=== PATIENT | male | born 1950 | race Caucasian/White ===

== ENCOUNTER 2025-01-29 22:11 | Emergency (ER) | payer OTHER ==
[~2025-01-29] VITALS: Ht 175.3 cm; Wt 95.3 kg
[2025-01-29] MEDS: ALBUTEROL SULF 2.5 MG/0.5ML(0.5%) NEB SOLN ONE (22:34)
[2025-01-29] MEDS: IPRATROPIUM BROM 0.5 MG/2.5ML INH SOL ONE (22:34)
[2025-01-29 22:35] VITALS: PULSE 67; RESP 17; O2SAT 95
[2025-01-29 22:54] LABS: Hemoglobin 8.5 g/dL (13.5-17.5)
[2025-01-29] MEDS: IPRATROPIUM BROM 0.5 MG/2.5ML INH SOL NEB ONE (22:55)
[2025-01-29 22:56] LABS: Hematocrit 27.8 % (41.0-53.0); Mean Corpuscular Hemoglobin 28.8 pg (28.0-32.0); Mean Corpuscular Hgb Conc. 30.6 g/dL (32.0-36.0); Mean Corpuscular Volume 93.9 fL (80.0-100.0); Platelet Count (auto) 188 10^3/uL (140-450); Red Blood Cells 2.96 10^6/uL (4.5-5.90); Red Cell Distribution Width 16.5 % (11.8-14.3)
[2025-01-29] MEDS: ALBUTEROL SULF 2.5 MG/0.5ML(0.5%) NEB SOLN NEB ONE (22:56)
[2025-01-29 23:02] LABS: Potassium 4.7 mmol/L (3.5-5.1); Sodium 144 mmol/L (136-145)
[2025-01-29 23:03] LABS: Anion Gap 12 (5-15)
[2025-01-29 23:04] LABS: Calcium 9.3 mg/dL (8.7-10.4)
[2025-01-29 23:07] LABS: Carbon Dioxide 16 mmol/L (20-31); Chloride 116 mmol/L (98-107)
[2025-01-29 23:09] LABS: BUN/Creatinine Ratio 16.3 (10.0-20.0)
--- NOTE | 2025-01-29 23:13 | ED.PDOC ---
History of Present Illness HPI Comments 74 y/o obese M is BIBA for c/o shortness of breath for 1x day. Per EMS report, patient is a resident of [facility]. He has a history of: AFIB on Plavix, AKF, CAD, DM, HLD, HTN, Bradycardia s/p pacemaker, PTCA, sick sinus syndrome, O2 dependency, Chronic lymphocytic leukemia of B-cell type, and recent PNA. On scene, he was found with expiratory wheezes and a SpO2 of 96% on his baseline O2, with a blood glucose of 151. En route, he gvien a breathing treatment, with moderate improvement of SpO2 to 96%. Patient denies any chest pain, cough, congestion, fever, chills, or further associated symptoms or modifying factors. Chief Complaint: Shortness of Breath Time Seen by MD: 22:20 Reviewed Notes: Nurses Notes, Novelties Sales Representative Notes, Medications, Allergies Allergies: Coded Allergies: Azithromycin (Verified Allergy, Unknown, 01/29/25) Sulfa Antibiotics (Verified Allergy, Unknown, 01/29/25) Information Source: Patient, Emergency Med Personnel Mode of Arrival: EMS Severity: Moderate Timing: Days Duration: Since onset Prehospital treatment: 12 Lead EKG, Breathing Tx, Data Solutions Architect, Oxygen, Other (IV access ) Past Medical History PAST MEDICAL HISTORY: AFIB, CAD, Cancer (Chronic lyphocytic leukemia of B-cell type), Depression, DM, High Lipids, HTN Past Medical History (Other): PNA, Sick sinus syndrome, AKF, Bradycardia Surgical History: Pacemaker, PTCA Family History Family History: Unknown Social History Smoker: Non-Smoker Alcohol: Denies ETOH Use Drugs: Denies Drug Use Lives In: [facility] All Other Systems: Reviewed and Negative (Comprehensive systems review obtained and negative except for what is stated in the HPI.) Physical Exam General Appearance: No Apparent Distress, Obese HEENT: Normal ENT Inspection, Pharynx Normal, TMs Normal Neck: Full Range of Motion, Non-Tender, Normal, Normal Inspection Respiratory: Chest Non-Tender, No Accessory Muscle Use, No Respiratory Distres s, Wheezing, Other (tachypneic ) Cardiovascular: No Edema, No JVD, No Murmur, No Gallop, Normal Peripheral Pulses, Tachycardia, Other (regular rhythm ) Breast Exam: Deferred Gastrointestinal: No Organomegaly, Non Tender, No Pulsatile Mass, Normal Bowel Sounds, Soft Genitalia: Deferred Pelvic: Deferred Rectal: Deferred Extremities: No calf tenderness, Normal capillary refill, Normal inspection, Normal range of motion, Non-tender, No pedal edema Musculoskeletal : Apperance: Normal Neurologic: Alert, cigar wrapper tender automatic II-XII nml as Tested, No Motor Deficits, Normal Affect, Normal Mood, No Sensory Deficits Cerebellar Function: Normal Reflexes: Normal Skin: Dry, Normal Color, Warm Lymphatic: No Adenopathy Was a procedure done? Was a procedure done?: No EKG EKG : Pulse Rate (adult): 64 Leopold: Normal Cardiac Rhythm: NSR Block: None Hypertrophy: None ST: Old, Lat, Infarct Differential Dx Considerations may include: URI, PNA, VT, PE, viral syndrome, among others X-Ray, Labs, Meds, VS Vital Signs Date Time Temp Pulse Resp B/P (MAP) Pulse Ox O2 Delivery O2 Flow Rate FiO2 01/30/25 00:32 146/85 01/30/25 00:00 62 01/29/25 23:28 69 24 155/64 (94) 95 01/29/25 23:13 64 01/29/25 22:35 67 95 Nasal Cannula* 5 40 01/29/25 22:23 67 29 171/58 (95) 93 01/29/25 22:23 98.6 68 24 157/80 (105) 96 98.6 01/29/25 22:15 64 Lab Test 01/30/25 01:42 01/30/25 00:06 01/29/25 23:40 01/29/25 23:20 Range/Units Troponin I High Sensitivity Pending 13 </=54 ng/L Urine Color Light-brown Yellow Urine Clarity Turbid H Clear Urine pH 5.5 5.0-9.0 Urine Specific Humphrey 1.015 1.001-1.035 Urine Protein 1+ H Negative Urine Ketones Negative Negative Urine Blood 3+ H Negative /uL Urine Nitrite Negative Negative Urine Bilirubin Negative Negative Urine Urobilinogen Normal Negative mg/dL Urine Leukocyte Esterase Negative Negative /uL Urine RBC 892 0 - 3 /hpf Urine Microscopic WBC 10 H 0-3 /HPF Urine Squamous Epithelial Cells Few <5 /hpf Urine Bacteria Few H None Seen /hpf Urine Mucus Few None Seen Urine Glucose Normal Normal mg/dL Lactic Acid Level 1.6 0.4-2.0 mmol/L Test 01/29/25 22:56 01/29/25 22:32 Range/Units Influenza Type A Antigen Negative Negative Influenza Type B Antigen Negative Negative SARS-CoV-2 Antigen (Rapid) Negative NEGATIVE White Blood Count 64.6 *H 4.4-10.8 10^3/uL Red Blood Count 2.96 L 4.5-5.90 10^6/uL Hemoglobin 8.5 L 13.5-17.5 g/dL Hematocrit 27.8 L 41.0-53.0 % Mean Corpuscular Volume 93.9 80.0-100.0 fL Mean Corpuscular Hemoglobin 28.8 28.0-32.0 pg Mean Corpuscular Hemoglobin Concent 30.6 L 32.0-36.0 g/dL Red Cell Distribution Width 16.5 H 11.8-14.3 % Platelet Count 188 140-450 10^3/uL Mean Platelet Volume 8.0 6.9-10.8 fL Neutrophils (%) (Auto) 37.0-80.0 % Lymphocytes (%) (Auto) 10.0-50.0 % Monocytes (%) (Auto) 0.0-12.0 % Basophils (%) (Auto) 0.0-2.0 % Neutrophils # (Auto) 1.6-8.6 10 ^3/uL Lymphocytes # (Auto) 0.4-5.4 10 ^3/uL Monocytes # (Auto) 0-1.3 10 ^3/uL Differential Total Cells Counted 100.0 100 Neutrophils % (Manual) 14 L 37.0-80.0 Band Neutrophils % (Manual) 0 Lymphocytes % (Manual) 86 H 10.0-50.0 Monocytes % (Manual) 0 0-12 Eosinophils % (Manual) 0 0-7 Basophils % (Manual) 0 0.0-2.0 Metamyelocytes % (manual) 0 Myelocytes % (Manual) 0 Promyelocytes % (Manual) 0 Blast Cells % (Manual) 0 Reactive Lymphocytes 0 Smudge Cells 38 /100 WBC Platelet Estimate Adequate Polychromasia Slight Micaela Cells Few Schistocytes Few Sodium Level 144 136-145 mmol/L Potassium Level 4.7 3.5-5.1 mmol/L Chloride Level 116 H 98-107 mmol/L Carbon Dioxide Level 16 L 20-31 mmol/L Anion Gap 12 5-15 Blood Urea Nitrogen 34 H 9-23 mg/dL Creatinine 2.09 H 0.700-1.30 mg/dL Glomerular Filtration Rate Calc 32 >90 mL/min BUN/Creatinine Ratio 16.3 10.0-20.0 Serum Glucose 147 H 74-106 mg/dL Calcium Level 9.3 8.7-10.4 mg/dL Troponin I High Sensitivity 14 </=54 ng/L B-Type Natriuretic Peptide 1423.40 0-100 pg/mL Current Medications Medications (Trade) Dose Ordered Sig/Maddie Route Start Time Stop Time Status Last Admin Azithromycin (Zithromax Tablet) 500 mg ONCE ONCE PO 01/29/25 22:30 01/29/25 22:32 DC 01/29/25 23:36 Albuterol (Ventolin Medneb) 5 mg ONCE ONCE NEB 01/29/25 22:30 01/29/25 22:32 DC 01/29/25 22:56 Ipratropium Gile (Atrovent Medneb) 0.5 mg ONCE ONCE NEB 01/29/25 22:30 01/29/25 22:32 DC 01/29/25 22:55 Furosemide (Lasix Injection) 40 mg ONCE ONCE IV 01/30/25 00:15 01/30/25 00:28 DC 01/30/25 00:32 Cefepime HCl 50 ml @ 12.5 mls/hr ONCE ONCE IV 01/30/25 00:45 01/30/25 04:44 01/30/25 00:56 Vancomycin HCl 200 ml @ 200 mls/hr ONCE ONCE IV 01/30/25 00:45 01/30/25 01:44 DC 01/30/25 00:45 Time of 1ST Reevaluation: 22:50 Reevaluation 1ST: Improved Patient Education/Counseling: Diagnosis, Treatment Family Education/Counseling: No Family Present Additional Information Previous visits: N/A The following tests were ordered, and results were reviewed by me: EKG, UA, CXR, BMP, BNP, CBC, COVID19 & RAPID INFLUENZA A/B antigen tests, troponin Additional Information was gathered from interviewing the following independent historians: EMS I reviewed and agreed with the following test results read by other providers: CXR I discussed treatment and results with medical personnel and: Patient Departure 1 Departure Time of Disposition: 02:01 ([facility] Authorization [id number] has CLL and that is likely why patient's white count is elevated. Patient was empirically cover with antibiotics. Patient is diffusely volume overloaded and was given Lasix. We will not give the fluid bolus. Patient was accepted to [facility] as a transfer.) Impression: Primary Impression: Shortness of breath Additional Impressions: Acute on chronic systolic (congestive) heart failure Generalized weakness CLL (chronic lymphocytic leukemia) Disposition: 02 [facility] Admit to: Med Surg Condition: Serious Critical Care Note Critical Care Time?: Yes Critical care comment: Acute shortness of breath Authorized and Performed by: Monalisa Anaya MD Total critical care time: Approximately 44 minutes Due to a high probability of clinically significant, life threatening deterioration, the patient required my highest level of preparedness to intervene emergently and I personally spent this critical care time directly and personally managing the patient. This critical care time included obtaining a history; examining the patient; pulse oximetry; ordering and review of studies; arranging urgent treatment with development of a management plan; evaluation of patient's response to treatment; frequent reassessment; and, discussions with other providers. This critical care time was performed to assess and manage the high probability of imminent, life-threatening deterioration that could result in multi-organ failure. It was exclusive of separately billable procedures and treating other patients and teaching time. Please see my other sections and the rest of the note for further information on patient assessment and treatment. Stability Stability form required: No Heart Score Heart Score: Heart Score Response (Comments) Value History Moderate Suspicious 1 EKG Normal 0 Age >65 2 Risk Factors >3 or Hx ASHD 2 Troponin 1-2 x's Normal limit 1 Total 6 I personally scribed for MONALISA ANAYA MD ([email or web address]) on 01/29/25 at 23:13. Electronically submitted by Ranjit Prater ([email or web address]). MONALISA ANAYA MD Jan 29, 2025 23:13
[2025-01-29 23:14] LABS: White Blood Cell 64.6 10^3/uL (4.4-10.8)
[2025-01-29 23:15] LABS: Blood Urea Nitrogen 34 mg/dL (9-23); Glucose 147 mg/dL (74-106)
[2025-01-29 23:16] LABS: Band Neutrophils % (manual) 0; Basophils % (manual) 0 (0.0-2.0); Blast Cells 0; Eosinophils % (manual) 0 (0-7); Metamyelocytes % 0; Monocytes % (manual) 0 (0-12); Myelocytes % 0; Promyelocytes % 0; Reactive Lymphocytes 0
[2025-01-29] MEDS: AZITHROMYCIN 250 MG TAB PO ONE (23:36)
[2025-01-29 23:39] LABS: COVID19 ANTIGEN SOFIA FIA NEGATIVE (NEGATIVE)
[2025-01-29 23:40] LABS: Rapid Influenza A Negative (Negative); Rapid Influenza B Negative (Negative)
--- NOTE | 2025-01-29 23:44 | DVH ---
EXAM: XY CHEST PORTABLE CLINICAL HISTORY: sob TECHNIQUE: Single AP view of the chest WID: COMPARISON: None FINDINGS: Lines and tubes: None Chest: Mild cardiomegaly. Patchy and confluent perihilar opacities bilaterally. Calcified plaque projects over the aortic arch. There are bilateral pleural effusions. No pneumothorax. The osseous structures are grossly intact. IMPRESSION: CHF and/or volume overload.
[2025-01-30 00:32] LABS: Urine Bacteria FEW /hpf (None Seen); Urine Blood 3+ /uL (Negative); Urine Clarity Turbid (Clear); Urine Color Light-Brown (Yellow); Urine Mucus FEW (None Seen); Urine Protein, UAD 1+ (Negative); Urine Specific Gravity 1.015 (1.001-1.035); Urine Squamous Epithelial Cell FEW /hpf (<5); Urine Urobilinogen Normal (Negative); Urine WBC 10 /HPF (0-3); Urine pH 5.5 (5.0-9.0)
[2025-01-30] MEDS: FUROSEMIDE 40 MG/4 ML VIAL IV ONE (00:32)
[2025-01-30] MEDS: VANCOMYCIN 1GM/200ML PM 200 ML IV ONE (00:45)
[2025-01-30 00:56] LABS: Lymphocytes % (manual) 86 (10.0-50.0); Smudge Cells 38 /100 WBC
[2025-01-30] MEDS: CEFEPIME 2GM/50ML NS 50 ML IV ONE (00:56)
[2025-01-30 00:58] LABS: Platelet Estimate Adequate; Polychromasia Slight
[2025-01-30 04:10] VITALS: BP 176/65; PULSE 59; RESP 17; TEMP 98.2; O2SAT 98
--- NOTE | 2025-01-30 05:03 | ECG ---
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
== END 2025-01-30 04:42 | disposition short-term general hospital (02) ==
LOC: ER 22:11 → EDBD 22:11 → ER 01-30 04:42
DX: R06.02 Shortness of breath (principal); R06.2 Wheezing; I11.0 Hypertensive heart disease with heart failure; I50.23 Acute on chronic systolic (congestive) heart failure; C91.10 Chronic lymphocytic leukemia of B-cell type not having achieved remission; E11.9 Type 2 diabetes mellitus without complications; E66.9 Obesity, unspecified; E78.5 Hyperlipidemia, unspecified; F32.A Depression, unspecified; Z20.822 Contact with and (suspected) exposure to COVID-19; Z95.0 Presence of cardiac pacemaker; Z88.1 Allergy status to other antibiotic agents; Z88.2 Allergy status to sulfonamides
CPT/HCPCS: 36415; 71045; 80048; 81001; 83605; 83880; 84484; 85007; 85027; 87040; 87426; 87804; 93005; 94640; 96365; 96366; 96368; 99291; J0692; J1938; J3370

== ENCOUNTER 2025-02-06 14:18 | Emergency (ER) | payer OTHER ==
[~2025-02-06] VITALS: Ht 175.3 cm; Wt 95.3 kg
--- NOTE | 2025-02-06 16:29 | ED.PDOC ---
History of Present Illness HPI Comments 74 y/o M, BIBA, with PMHx of cancer, depression, AFib, CAD,DM, HLD, and HTN presents to the ED for CC of hematuria. EMS reports, patient is coming from home where he complains of hematuria onset today (02/05/25); following trauma. Per patient's son, he was lifting patient to help him with breakfast, when he believes it may have tugged or pulled on something resulting in hematuria to drain shortly there after. Patient's son reports, patient had Benavides Catheter placed xmonths ago for a pacemaker and has never been discontinued due to urinary retention. Patient complains of current penile pain and dysuria. No other symptoms or modifying factors present at this time. Chief Complaint: Tube Replacement Time Seen by MD: 16:18 Primary Care Provider: KIKA Reviewed Notes: Nurses Notes, Medications, Allergies Allergies: Coded Allergies: Azithromycin (Verified Allergy, Unknown, 02/06/25) Sulfa Antibiotics (Verified Allergy, Unknown, 01/29/25) Information Source: Patient, Relative (Child) Mode of Arrival: EMS Severity: Moderate Timing: Hours Duration: Since onset Prehospital treatment: None Past Medical History PAST MEDICAL HISTORY: AFIB, CAD, Cancer, Depression, DM, High Lipids, HTN Surgical History: Pacemaker, PTCA Family History Family History: No family hx of HTN, Unknown Social History Smoker: Non-Smoker Alcohol: Denies ETOH Use Drugs: Denies Drug Use Lives In: Longterm Constitutional: denies: chills, diaphoresis, fatigue, fever, malaise, sweats, weakness, others EENTM: denies: blurred vision, double vision, ear bleeding, ear discharge, ear drainage, ear pain, ear ringing, eye pain, eye redness, hearing loss, mouth pain, mouth swelling, nasal discharge, nose bleeding, nose congestion, nose pain, photophobia, tearing, throat pain, throat swelling, voice changes, others Respiratory: denies: cough, hemoptysis, orthopnea, SOB at rest, shortness of breath, SOB with excertion, stridor, wheezing, others Cardiovascular: denies: chest pain, dizzy spells, diaphoresis, Dyspnea on exertion, edema, irregular heart beat, left arm pain, lightheadedness, palpitat ions, PND, syncope, others Gastrointestinal: denies: abdomen distended, abdominal pain, blood streaked bow els, constipated, diarrhea, dysphagia, difficulty swallowing, hematemesis, melena, nausea, poor appetite, poor fluid intake, rectal bleeding, rectal pain, vomiting, others Genitourinary: reports: hematuria, others (penile pain); denies: burning, dysuria, flank pain, frequency, incontinence, penile discharge, penile sore, pain, testicle pain, testicle swelling, urgency Neurological: denies: dizziness, fainting, headache, left sided numbness, left sided weakness, numbness, paresthesia, pre-existing deficit, right sided numbness, right sided weakness, seizure, speech problems, tingling, tremors, weakness, others Musculoskeletal: denies: back pain, gout, joint pain, joint swelling, muscle pain, muscle stiffness, neck pain, others Integumetry: denies: bruises, change in color, change in hair/nails, dryness, laceration, lesions, lumps, rash, wounds, others Allergic/Immunocompromised: denies: Difficulty Healing, Frequent Infections, Hives, Itching, others Hematologic/Lymphatic: denies: anemia, blood clots, easy bleeding, easy bruising, swollen glands, others Endocrine: denies: excessive hunger, excessive sweating, excessive thirst, excessive urination, flushing, intolerance to cold, intolerance to heat, unexplained weight gain, unexplained weight loss, others Psychiatric: denies: anxiety, bipolar disorder, depression, hopeless, panic disorder, schizophrenia, sleepless, suicidal, others All Other Systems: Reviewed and Negative Physical Exam General Appearance: No Apparent Distress, Normal HEENT: Normal ENT Inspection, Pharynx Normal, TMs Normal Neck: Full Range of Motion, Non-Tender, Normal, Normal Inspection Respiratory: Chest Non-Tender, Lungs Clear, No Accessory Muscle Use, No Respira tory Distress, Normal Breath Sounds Cardiovascular: No Edema, No JVD, No Murmur, No Gallop, Normal Peripheral Pulses, Regular Rate/Rhythm Breast Exam: Deferred Gastrointestinal: No Organomegaly, Non Tender, No Pulsatile Mass, Normal Bowel Sounds, Soft Genitalia: Other (benavides catheter, hematuria) Pelvic: Deferred Rectal: Deferred Extremities: No calf tenderness, Normal capillary refill, Normal inspection, Normal range of motion, Non-tender, No pedal edema Musculoskeletal : Apperance: Normal Neurologic: Alert, church worker II-XII nml as Tested, No Motor Deficits, Normal Affect, Normal Mood, No Sensory Deficits Cerebellar Function: Normal Reflexes: Normal Skin: Dry, Normal Color, Warm Lymphatic: No Adenopathy Was a procedure done? Was a procedure done?: No Differential Dx Considerations may include: BENAVIDES CATHETER REMOVAL X-Ray, Labs, Meds, VS Vital Signs Date Time Temp Pulse Resp B/P (MAP) Pulse Ox O2 Delivery O2 Flow Rate FiO2 02/06/25 14:26 98.2 52 20 148/86 (106) 96 98.2 Time of 1ST Reevaluation: 16:48 Reevaluation 1ST: Unchanged Patient Education/Counseling: Diagnosis, Treatment Family Education/Counseling: No Family Present Departure 1 Departure Time of Disposition: 17:43 (Patient presented with hematuria in his catheter after pulling on the catheter. Patient with acute urinary retention. We will replace patient's catheter the patient will follow up with his urologist at [place].) Impression: Primary Impression: Hematuria Qualified Codes: R31.0 - Gross hematuria Additional Impression: Urinary retention Disposition: 01 HOME / SELF CARE / HOMELESS Condition: Stable Additional Instructions: It is important to follow up with your [place] urologist this week. Please call for an appointment. If your symptoms worsen or if any other concerns please return to the emergency room. Discharged With: [facility] Critical Care Note Critical Care Time?: No Stability Stability form required: No Heart Score Heart Score: Heart Score Response (Comments) Value History N/A 0 EKG N/A 0 Age N/A 0 Risk Factors N/A 0 Troponin N/A 0 Total 0 I personally scribed for MONALISA PEDRO MD ([email or web address]) on 02/06/25 at 16:29. Electronically submitted by Chayo Rosa ([email or web address]). MONALISA PEDRO MD February 06, 2025 16:29
[2025-02-06 18:15] VITALS: BP 103/48; PULSE 56; RESP 18; TEMP 97.8; O2SAT 95
== END 2025-02-06 18:21 | disposition home or self-care (01) ==
LOC: EDBD 14:18 → ER 14:32
DX: R31.9 Hematuria, unspecified (principal); R33.9 Retention of urine, unspecified; I48.91 Unspecified atrial fibrillation; I25.10 Atherosclerotic heart disease of native coronary artery without angina pectoris; E11.9 Type 2 diabetes mellitus without complications; E78.5 Hyperlipidemia, unspecified; I10 Essential (primary) hypertension; Z88.2 Allergy status to sulfonamides; Z88.1 Allergy status to other antibiotic agents; Z95.0 Presence of cardiac pacemaker
CPT/HCPCS: 51702; 99284; A4315

== ENCOUNTER 2025-03-20 07:15 | Emergency (ER) | payer OTHER ==
[~2025-03-20] VITALS: Ht 172.7 cm; Wt 87.0 kg
--- NOTE | 2025-03-20 07:33 | ED.PDOC ---
Altered Mental Status HPI Comments 74 y/o M, BIBA, with PMHx of cancer, depression, AFib, CAD,DM, HLD,COPD and HTN presents to the ED for the c/c of ALOC. Per EMS pt stated having Generalized Weakness w/ ALOC around 2am this morning. EMS states that this has happened before, so family delayed in calling emergency services. EMS states that pts Glucose was 99 on route and was given an Albuterol 2.5 treatment. Pt is noted to have bilateral lower extremity pitting edema. No other associated symptoms, modifiers, recent injuries or sick contacts present at this time. Chief Complaint: ALOC Time Seen by MD: 07:27 Primary Care Provider: KIKA Reviewed Notes: Nurses Notes, Shear Scrapman Notes, Medications, Allergies Allergies: Coded Allergies: Azithromycin (Verified Allergy, Unknown, 02/06/25) Sulfa Antibiotics (Verified Allergy, Unknown, 01/29/25) Information Source: Patient Mode of Arrival: EMS Severity: Moderate Timing: Hours Duration: Since onset, Hours Prehospital treatment: Other (Albutorl 2.5) Quality: Decreased Alertness Recent: None History of: CVA, Diabetes Associated Signs and Symptoms: None Past Medical History PAST MEDICAL HISTORY: AFIB, CAD, Cancer, Depression, DM, High Lipids, HTN Surgical History: Pacemaker, PTCA Family History Family History: No family hx of HTN, Unknown Social History Smoker: Non-Smoker Alcohol: Denies ETOH Use Drugs: Denies Drug Use Lives In: Long-Term Constitutional: reports: weakness; denies: chills, diaphoresis, fatigue, fever, malaise, sweats, others EENTM: denies: blurred vision, double vision, ear bleeding, ear discharge, ear drainage, ear pain, ear ringing, eye pain, eye redness, hearing loss, mouth pain, mouth swelling, nasal discharge, nose bleeding, nose congestion, nose pain, photophobia, tearing, throat pain, throat swelling, voice changes, others Respiratory: denies: cough, hemoptysis, orthopnea, SOB at rest, shortness of breath, SOB with excertion, stridor, wheezing, others Cardiovascular: denies: chest pain, dizzy spells, diaphoresis, Dyspnea on exertion, edema, irregular heart beat, left arm pain, lightheadedness, palpitations, PND, syncope, others Gastrointestinal: denies: abdomen distended, abdominal pain, blood streaked bowels, constipated, diarrhea, dysphagia, difficulty swallowing, hematemesis, melena, nausea, poor appetite, poor fluid intake, rectal bleeding, rectal pain, vomiting, others Genitourinary: denies: burning, dysuria, flank pain, frequency, hematuria, incontinence, penile discharge, penile sore, pain, testicle pain, testicle swelling, urgency, others Neurological: denies: dizziness, fainting, headache, left sided numbness, left sided weakness, numbness, paresthesia, pre-existing deficit, right sided numbnes s, right sided weakness, seizure, speech problems, tingling, tremors, weakness, others Musculoskeletal: denies: back pain, gout, joint pain, joint swelling, muscle pain, muscle stiffness, neck pain, others Integumetry: denies: bruises, change in color, change in hair/nails, dryness, laceration, lesions, lumps, rash, wounds, others Allergic/Immunocompromised: denies: Difficulty Healing, Frequent Infections, Hives, Itching, others Hematologic/Lymphatic: denies: anemia, blood clots, easy bleeding, easy bruising, swollen glands, others Endocrine: denies: excessive hunger, excessive sweating, excessive thirst, excessive urination, flushing, intolerance to cold, intolerance to heat, unexplained weight gain, unexplained weight loss, others Psychiatric: denies: anxiety, bipolar disorder, depression, hopeless, panic disorder, schizophrenia, sleepless, suicidal, others All Other Systems: Reviewed and Negative Physical Exam General Appearance: Mild Distress, Normal, Obese, Other (Tachypnic, ill appearing) HEENT: Normal ENT Inspection, Pharynx Normal, TMs Normal Neck: Full Range of Motion, Non-Tender, Normal, Normal Inspection Respiratory: Chest Non-Tender, Lungs Clear, No Accessory Muscle Use, No Respiratory Distress, Normal Breath Sounds Cardiovascular: No JVD, No Murmur, Normal Peripheral Pulses, Regular Rate/Rhythm, Tachycardia Breast Exam: Deferred Gastrointestinal: Non Tender, No Pulsatile Mass, Normal Bowel Sounds, Soft Genitalia: Deferred Pelvic: Deferred Rectal: Deferred Extremities: Leg edema (bilateral pitting), No calf tenderness, Normal range of motion, Non-tender Musculoskeletal : Apperance: Normal Neurologic: Alert, No Motor Deficits, Normal Mood Cerebellar Function: Normal Reflexes: Normal Skin: Dry, Normal Color, Warm Lymphatic: No Adenopathy Was a procedure done? Was a procedure done?: No Differential Diagnosis (ALOC) Differential Diagnosis: Dehydration, Hypoglycemia, Encephalopathy, Sepsis, Seizure, Closed Head Injury, CVA, Heart Failure X-Ray, Labs, Meds, VS Vital Signs Date Time Temp Pulse Resp B/P (MAP) Pulse Ox O2 Delivery O2 Flow Rate FiO2 03/20/25 09:03 99.5 97 21 152/70 (97) 93 99.5 03/20/25 08:50 97 19 159/78 (105) 93 03/20/25 08:00 103 03/20/25 07:51 95 21 94 Nasal Cannula* 3 32 03/20/25 07:49 99.4 95 21 140/66 (90) 94 99.4 03/20/25 07:46 95 03/20/25 07:15 98.6 100 28 142/75 (97) 92 98.6 Lab Test 03/20/25 09:25 03/20/25 07:42 03/20/25 07:37 Range/Units Troponin I High Sensitivity 10 10 </=54 ng/L White Blood Count 40.7 *H 4.4-10.8 10^3/uL Red Blood Count 3.16 L 4.5-5.90 10^6/uL Hemoglobin 8.9 L 13.5-17.5 g/dL Hematocrit 28.2 L 41.0-53.0 % Mean Corpuscular Volume 89.4 80.0-100.0 fL Mean Corpuscular Hemoglobin 28.1 28.0-32.0 pg Mean Corpuscular Hemoglobin Concent 31.5 L 32.0-36.0 g/dL Red Cell Distribution Width 16.9 H 11.8-14.3 % Platelet Count 230 140-450 10^3/uL Mean Platelet Volume 7.8 6.9-10.8 fL Neutrophils (%) (Auto) 37.0-80.0 % Lymphocytes (%) (Auto) 10.0-50.0 % Monocytes (%) (Auto) 0.0-12.0 % Basophils (%) (Auto) 0.0-2.0 % Neutrophils # (Auto) 1.6-8.6 10 ^3/uL Lymphocytes # (Auto) 0.4-5.4 10 ^3/uL Monocytes # (Auto) 0-1.3 10 ^3/uL Differential Total Cells Counted 100.0 100 Neutrophils % (Manual) 32 L 37.0-80.0 Band Neutrophils % (Manual) 1 Lymphocytes % (Manual) 66 H 10.0-50.0 Monocytes % (Manual) 1 0-12 Eosinophils % (Manual) 0 0-7 Basophils % (Manual) 0 0.0-2.0 Metamyelocytes % (manual) 0 Myelocytes % (Manual) 0 Promyelocytes % (Manual) 0 Blast Cells % (Manual) 0 Reactive Lymphocytes 0 Smudge Cells 9 /100 WBC Platelet Estimate Adequate Anisocytosis (manual) Slight Schistocytes Few Sodium Level 141 136-145 mmol/L Potassium Level 4.0 3.5-5.1 mmol/L Chloride Level 103 98-107 mmol/L Carbon Dioxide Level 25 20-31 mmol/L Anion Gap 13 5-15 Blood Urea Nitrogen 27 H 9-23 mg/dL Creatinine 2.24 H 0.700-1.30 mg/dL Glomerular Filtration Rate Calc 30 >90 mL/min BUN/Creatinine Ratio 12.1 10.0-20.0 Serum Glucose 97 74-106 mg/dL Lactic Acid Level 0.6 0.4-2.0 mmol/L Calcium Level 9.5 8.7-10.4 mg/dL Urine Color Light-brown Yellow Urine Clarity Turbid H Clear Urine pH 5.5 5.0-9.0 Urine Specific [place] 1.011 1.001-1.035 Urine Protein 1+ H Negative Urine Ketones 1+ H Negative Urine Blood 3+ H Negative /uL Urine Nitrite Negative Negative Urine Bilirubin Negative Negative Urine Urobilinogen Normal Negative mg/dL Urine Leukocyte Esterase 3+ Negative /uL Urine RBC 1256 0 - 3 /hpf Urine WBC Clumps Present None Seen /hpf Urine Microscopic WBC 143 H 0-3 /HPF Urine Squamous Epithelial Cells None seen <5 /hpf Urine Bacteria None seen None Seen /hpf Urine Glucose Normal Normal mg/dL Current Medications Medications (Trade) Dose Ordered Sig/Maddie Route Start Time Stop Time Status Last Admin Cefepime HCl 50 ml @ 12.5 mls/hr ONCE ONCE IV 03/20/25 09:00 03/20/25 12:59 03/20/25 10:15 Vancomycin HCl 200 ml @ 200 mls/hr ONCE ONCE IV 03/20/25 09:00 03/20/25 09:59 DC 03/20/25 08:56 PATIENT: SYED MCCARTHY ACCT: [id number] UNIT: [id number] : 1950 LOC: ER ROOM / BED: / AGE / SEX: 74 / M ADM STATUS: REG ER SERVICE 6 ORDERING PHYSICIAN: MONALISA ANAYA MD PROCEDURE(s): CXRP - CHEST PORTABLE REASON: ams ORDER NUMBER(s): [id number], ACCESSION NUMBER(s): [id number] CHEST RADIOGRAPH Indication: ams Technique: Single frontal view of the chest was obtained Comparison: XY CHEST PORTABLE on DOS: 01/29/25 FINDINGS: Lines and Tubes: None Lungs: No focal consolidation. Pleura: No effusion. No pneumothorax. Cardiomediastinal contours: Cardiomegaly Bones: No acute osseous abnormality. IMPRESSION: Cardiomegaly with CHF. Time of 1ST Reevaluation: 07:58 Reevaluation 1ST: Unchanged Patient Education/Counseling: Diagnosis, Treatment Family Education/Counseling: No Family Present SEPSIS Sepsis Screen Orders/Vitals/Labs Physician Orders Chest Portable (03/20/25 07:27) Blood Culture (03/20/25 07:27) Troponin-I Hs (03/20/25 10:27) Cefepime 2gm/50ml Ns (Maxipime 2gm/50ml) (03/20/25 09:00) Electrocardigram (03/20/25 09:26) Head Without Contrast (03/20/25 09:32) Furosemide Injection (Lasix Injection) (03/20/25 11:00) Vital Signs Date Time Temp Pulse Resp B/P (MAP) Pulse Ox O2 Delivery O2 Flow Rate FiO2 03/20/25 09:03 99.5 97 21 152/70 (97) 93 99.5 03/20/25 08:50 97 19 159/78 (105) 93 03/20/25 08:00 103 03/20/25 07:51 95 21 94 Nasal Cannula* 3 32 03/20/25 07:49 99.4 95 21 140/66 (90) 94 99.4 03/20/25 07:46 95 03/20/25 07:15 98.6 100 28 142/75 (97) 92 98.6 Laboratory Tests Test 03/20/25 07:42 Lactic Acid Level 0.6 mmol/L (0.4-2.0) White Blood Count 40.7 10^3/uL (4.4-10.8) *H Medications Medications Dose Ordered Sig/Maddie Route Start Time Stop Time Status Last Admin Dose Admin Cefepime HCl 50 ml @ 12.5 mls/hr ONCE ONCE IV 03/20/25 09:00 03/20/25 12:59 03/20/25 10:15 Vancomycin HCl 200 ml @ 200 mls/hr ONCE ONCE IV 03/20/25 09:00 03/20/25 09:59 DC 03/20/25 08:56 Departure 1 Departure Time of Disposition: 11:01 ([facility] with a acute metabolic encephalopathy likely secondary to a urinary tract infection. Patient appears clinically volume overloaded so we will not give patient fluid bolus. We will try given patient has some Lasix to diuresis extra fluid. Discussed patient with [facility] who will pick patient up.) Impression: Primary Impression: Acute metabolic encephalopathy Additional Impressions: Acute and chronic respiratory failure Complicated urinary tract infection Disposition: 02 SHORT TERM HOSPITAL Admit to: Med Surg Condition: Serious Critical Care Note Critical Care Time?: Yes Critical care comment: Altered mental status Authorized and Performed by: Monalisa Anaya MD Total critical care time: Approximately 47 minutes Due to a high probability of clinically significant, life threatening deterioration, the patient required my highest level of preparedness to intervene emergently and I personally spent this critical care time directly and personally managing the patient. This critical care time included obtaining a history; examining the patient; pulse oximetry; ordering and review of studies; arranging urgent treatment with development of a management plan; evaluation of patient's response to treatment; frequent reassessment; and, discussions with other providers. This critical care time was performed to assess and manage the high probability of imminent, life-threatening deterioration that could result in multi-organ failure. It was exclusive of separately billable procedures and treating other patients and teaching time. Please see my other sections and the rest of the note for further information on patient assessment and treatment. Stability Stability form required: No Heart Score Heart Score: Heart Score Response (Comments) Value History N/A 0 EKG N/A 0 Age N/A 0 Risk Factors N/A 0 Troponin N/A 0 Total 0 I personally scribed for MONALISA ANAYA MD ([email or web address]) on 03/20/25 at 07:33. Electronically submitted by Stephane Andrade ([email or web address]). I personally scribed for MONALISA ANAYA MD ([email or web address]) on 03/20/25 at 08:17. Electronically submitted by Stephane Andrade ([email or web address]). MONALISA ANAYA MD Mar 20, 2025 07:33
[2025-03-20 07:51] VITALS: PULSE 95; RESP 21; O2SAT 94
[2025-03-20 08:05] LABS: Urine Bacteria None Seen /hpf (None Seen)
[2025-03-20 08:09] LABS: Hemoglobin 8.9 g/dL (13.5-17.5); Mean Corpuscular Hemoglobin 28.1 pg (28.0-32.0); Red Cell Distribution Width 16.9 % (11.8-14.3)
[2025-03-20 08:11] LABS: Hematocrit 28.2 % (41.0-53.0); Mean Corpuscular Hgb Conc. 31.5 g/dL (32.0-36.0); Mean Corpuscular Volume 89.4 fL (80.0-100.0); Platelet Count (auto) 230 10^3/uL (140-450); Red Blood Cells 3.16 10^6/uL (4.5-5.90)
--- NOTE | 2025-03-20 08:12 | DVH ---
CHEST RADIOGRAPH Indication: ams Technique: Single frontal view of the chest was obtained Comparison: XY CHEST PORTABLE on DOS: 01/29/25 FINDINGS: Lines and Tubes: None Lungs: No focal consolidation. Pleura: No effusion. No pneumothorax. Cardiomediastinal contours: Cardiomegaly Bones: No acute osseous abnormality. IMPRESSION: Cardiomegaly with CHF.
[2025-03-20 08:17] LABS: Urine Blood 3+ /uL (Negative); Urine Clarity Turbid (Clear); Urine Color Light-Brown (Yellow); Urine Protein, UAD 1+ (Negative); Urine Specific Gravity 1.011 (1.001-1.035); Urine Squamous Epithelial Cell None Seen /hpf (<5); Urine Urobilinogen Normal (Negative); Urine WBC 143 /HPF (0-3); Urine WBC Clumps PRESENT /hpf (None Seen); Urine pH 5.5 (5.0-9.0)
[2025-03-20 08:20] LABS: Anion Gap 13 (5-15); Carbon Dioxide 25 mmol/L (20-31); Chloride 103 mmol/L (98-107); Sodium 141 mmol/L (136-145)
[2025-03-20 08:21] LABS: Calcium 9.5 mg/dL (8.7-10.4)
[2025-03-20 08:26] LABS: BUN/Creatinine Ratio 12.1 (10.0-20.0); Blood Urea Nitrogen 27 mg/dL (9-23); Glucose 97 mg/dL (74-106)
[2025-03-20 08:29] LABS: White Blood Cell 40.7 10^3/uL (4.4-10.8)
[2025-03-20 08:32] LABS: Basophils % (manual) 0 (0.0-2.0); Blast Cells 0; Eosinophils % (manual) 0 (0-7); Metamyelocytes % 0; Myelocytes % 0; Promyelocytes % 0; Reactive Lymphocytes 0
[2025-03-20 08:45] LABS: Band Neutrophils % (manual) 1; Lymphocytes % (manual) 66 (10.0-50.0); Monocytes % (manual) 1 (0-12)
[2025-03-20 08:46] LABS: Anisocytosis Slight; Platelet Estimate Adequate
[2025-03-20 08:48] LABS: Smudge Cells 9 /100 WBC
[2025-03-20] MEDS: VANCOMYCIN 1GM/200ML PM 200 ML IV ONE (08:56)
[2025-03-20] MEDS: CEFEPIME 2GM/50ML NS 50 ML IV ONE (10:15)
--- NOTE | 2025-03-20 10:27 | DVH ---
CT HEAD WITHOUT CONTRAST INDICATION: fall EXAM DATE: 03/20/2025 09:50 AM COMPARISON: None RADIATION DOSE: CTDIvol: 63.65 mGy, DLP: 1147.37 mGy*cm PROCEDURE: CT scans of the head were obtained from the vertex to the skull base. Sagittal and coronal reconstructions were provided. All CT scans at this medical facility are performed using dose modulation techniques as appropriate t o a performed exam including the following: Automated exposure control was utilized; adjustment of th e MA and/or KV according to patient size; and use of iterative reconstruction technique. FINDINGS: There is sulcal and ventricular prominence. The brainshows normal morphology and torres-whi te matter differentiation, without intracranial hemorrhage, extra-axial fluid collection, mass effect or acute large vessel infarct. The ventricles are normal in size. The basal cisterns are patent. The skull and visible facial bones are intact. The paranasal sinuses, mastoid air cells and middle ear c avities are well-aerated. The soft tissues of the scalp are unremarkable. IMPRESSION: No acute intracranial abnormality.
[2025-03-20] MEDS: FUROSEMIDE 40 MG/4 ML VIAL IV ONE (11:16)
[2025-03-20 18:11] VITALS: BP 160/78; PULSE 97; RESP 34; TEMP 98.1; O2SAT 92
--- NOTE | 2025-03-20 18:48 | ECG ---
[facility] Test Date: 2025-03-20 Test Time: 07:46:50 Pat Name: SYED MCCARTHY Department: ED Room: Gender: M [employer]: id : 1950 Requested By: MONALISA PEDRO Order Number: [id number] Reading MD: Benigno Erickson Measurements Intervals [place] Rate: 95 P: 0 SD: 60 QRS: 243 QRSD: 300 T: -26 QT: 393 QTc: 494 Interpretive Statements Ventricular-paced complexes No further analysis attempted due to paced rhythm Electronically Signed On 03-23-2025 21:13:42 PDT by Benigno Erickson Please click the below link to view image of tracing.
== END 2025-03-20 18:30 | disposition short-term general hospital (02) ==
LOC: ER 07:15 → EDUNIT# 07:15 → EDBD 07:15 → ER 18:30
DX: B34.9 Viral infection, unspecified (principal); G93.41 Metabolic encephalopathy; J96.20 Acute and chronic respiratory failure, unspecified whether with hypoxia or hypercapnia; N39.0 Urinary tract infection, site not specified; I48.91 Unspecified atrial fibrillation; I11.0 Hypertensive heart disease with heart failure; I50.9 Heart failure, unspecified; I25.10 Atherosclerotic heart disease of native coronary artery without angina pectoris; E11.9 Type 2 diabetes mellitus without complications; E78.5 Hyperlipidemia, unspecified; J44.9 Chronic obstructive pulmonary disease, unspecified; Z86.73 Personal history of transient ischemic attack (TIA), and cerebral infarction without residual deficits; Z88.2 Allergy status to sulfonamides; Z88.1 Allergy status to other antibiotic agents; Z95.0 Presence of cardiac pacemaker; Z79.899 Other long term (current) drug therapy
CPT/HCPCS: 36415; 70450; 71045; 80048; 81001; 82947; 83605; 84484; 85007; 85027; 87040; 93005; 96365; 96367; 96375; 99291; J0692; J1938; 82962

== ENCOUNTER 2025-04-22 13:47 | Emergency (ER) | payer OTHER ==
[~2025-04-22] VITALS: Ht 170.2 cm; Wt 84.0 kg
--- NOTE | 2025-04-22 14:02 | ECG ---
[facility] Test Date: 2025-04-22 Test Time: 13:57:12 Pat Name: SYED MCCARTHY Department: ED Room: Gender: M Risk Mgr: : 1950 Requested By: SKYLER QUEVEDO Order Number: [id number] Reading MD: Benigno Erickson Measurements Intervals [place] Rate: 50 P: 48 AL: 159 QRS: 150 QRSD: 167 T: 94 QT: 538 QTc: 491 Interpretive Statements Atrial-sensed ventricular-paced rhythm No further analysis attempted due to paced rhythm Electronically Signed On 04-25-2025 15:53:50 PDT by Benigno Erickson Please click the below link to view image of tracing.
--- NOTE | 2025-04-22 14:04 | ED.PDOC ---
SOB-HPI HPI Comments 74 y.o male with PMHx of HTN, DM, HLD, and thyroid disease, presents to the ED via EMS for a chief complaint of SOB associated with generalized weakness. EMS reports patient was recently discharged from [facility]'s ICU department s/p 3 day admission but patient is unsure of diagnosis that prompted to get admitted or when he was discharged. Patient reports increased SOB, was on 2 liters at [facility] and was increased to 4 liters via [place]. Patient on scene had a SPO2 of 90-91% per EMS and presents with saturation of 94-95% on 2 liters via [place]. Patient is a poor historian. He mentions chest pain yesterday but has resolved and pain free at this time. He denies any palpitations, nausea, vomiting, back pain, fever, chi lls. Time Seen by MD: 13:53 Primary Care Provider: KIKA Reviewed notes: Nurses Notes, Base Manager Notes, Medications, Allergies Information Source: Patient, Emergency Med Personnel Mode of Arrival: EMS Severity: Moderate Timing: Hours Duration: Since onset Context: At Rest PE Risk Factors: Other (recent admission to ICU at [facility] ) History of: Other Prehospital treatment: 12 Lead EKG, Rental Sales Representative, Oxygen Modifying Factors: Nothing Associated Signs and Symptoms: None Past Medical History PAST MEDICAL HISTORY: AFIB, CAD, Cancer, Depression, DM, High Lipids, HTN Surgical History: Pacemaker, PTCA Family History Family History: No family hx of HTN, Unknown Social History Smoker: Non-Smoker Alcohol: Denies ETOH Use Drugs: Denies Drug Use Lives In: [facility] Constitutional: reports: weakness; denies: chills, diaphoresis, fatigue, fever, malaise, sweats, others EENTM: denies: blurred vision, double vision, ear bleeding, ear discharge, ear drainage, ear pain, ear ringing, eye pain, eye redness, hearing loss, mouth pain, mouth swelling, nasal discharge, nose bleeding, nose congestion, nose pain, photophobia, tearing, throat pain, throat swelling, voice changes, others Respiratory: reports: SOB at rest, shortness of breath, SOB with excertion; denies: cough, hemoptysis, orthopnea, stridor, wheezing, others Cardiovascular: denies: chest pain, dizzy spells, diaphoresis, Dyspnea on exertion, edema, irregular heart beat, left arm pain, lightheadedness, palpitations, PND, syncope, others Gastrointestinal: denies: abdomen distended, abdominal pain, blood streaked bowels, constipated, diarrhea, dysphagia, difficulty swallowing, hematemesis, melena, nausea, poor appetite, poor fluid intake, rectal bleeding, rectal pain, vomiting, others Genitourinary: denies: burning, dysuria, flank pain, frequency, hematuria, incontinence, penile discharge, penile sore, pain, testicle pain, testicle swelling, urgency, others Neurological: denies: dizziness, fainting, headache, left sided numbness, left sided weakness, numbness, paresthesia, pre-existing deficit, right sided numbness, right sided weakness, seizure, speech problems, tingling, tremors, weakness, others Musculoskeletal: denies: back pain, gout, joint pain, joint swelling, muscle pain, muscle stiffness, neck pain, others Integumetry: denies: bruises, change in color, change in hair/nails, dryness, laceration, lesions, lumps, rash, wounds, others Allergic/Immunocompromised: denies: Difficulty Healing, Frequent Infections, Hives, Itching, others Hematologic/Lymphatic: denies: anemia, blood clots, easy bleeding, easy bruising, swollen glands, others Endocrine: denies: excessive hunger, excessive sweating, excessive thirst, excessive urination, flushing, intolerance to cold, intolerance to heat, unexplained weight gain, unexplained weight loss, others Psychiatric: denies: anxiety, bipolar disorder, depression, hopeless, panic disorder, schizophrenia, sleepless, suicidal, others All Other Systems: Reviewed and Negative Physical Exam General Appearance: Moderate Distress HEENT: Normal ENT Inspection, Pharynx Normal, TMs Normal Neck: Full Range of Motion, Non-Tender, Normal, Normal Inspection Respiratory: Chest Non-Tender, No Accessory Muscle Use, Rales, Respiratory D istress Cardiovascular: No Edema, No JVD, No Murmur, No Gallop, Normal Peripheral Pulses, Regular Rate/Rhythm Breast Exam: Deferred Gastrointestinal: No Organomegaly, Non Tender, No Pulsatile Mass, Normal Bowel Sounds, Soft Genitalia: Deferred Pelvic: Deferred Rectal: Deferred Extremities: No calf tenderness, Normal capillary refill, Normal inspection, Normal range of motion, Non-tender, No pedal edema Musculoskeletal : Apperance: Normal Neurologic: Alert, icu manager II-XII nml as Tested, Motor Weakness, Normal Affect, Normal Mood, No Sensory Deficits Cerebellar Function: Normal Reflexes: Normal Skin: Dry, Normal Color, Warm Lymphatic: No Adenopathy EKG EKG : Pulse Rate (adult): 50 Cardiac Rhythm: Paced Was a procedure done? Was a procedure done?: No Differential Dx Differential Diagnosis: Bronchitis, COPD, Pneumonia, Respiratory Distress, URI X-Ray, Labs, Meds, VS Vital Signs Date Time Temp Pulse Resp B/P (MAP) Pulse Ox O2 Delivery O2 Flow Rate FiO2 04/22/25 16:44 98.4 50 18 159/61 (93) 94 98.4 04/22/25 14:53 89 04/22/25 14:04 50 04/22/25 13:57 50 04/22/25 13:52 99.0 60 23 160/71 (100) 95 99.0 Lab Test 04/22/25 17:36 04/22/25 15:23 04/22/25 14:38 Range/Units Troponin I High Sensitivity Pending 26 26 </=54 ng/L White Blood Count 15.3 H 4.4-10.8 10^3/uL Red Blood Count 3.40 L 4.5-5.90 10^6/uL Hemoglobin 9.3 L 13.5-17.5 g/dL Hematocrit 29.5 L 41.0-53.0 % Mean Corpuscular Volume 86.7 80.0-100.0 fL Mean Corpuscular Hemoglobin 27.4 L 28.0-32.0 pg Mean Corpuscular Hemoglobin Concent 31.6 L 32.0-36.0 g/dL Red Cell Distribution Width 17.6 H 11.8-14.3 % Platelet Count 168 140-450 10^3/uL Mean Platelet Volume 7.9 6.9-10.8 fL Neutrophils (%) (Auto) 37.0-80.0 % Lymphocytes (%) (Auto) 10.0-50.0 % Monocytes (%) (Auto) 0.0-12.0 % Basophils (%) (Auto) 0.0-2.0 % Neutrophils # (Auto) 1.6-8.6 10 ^3/uL Lymphocytes # (Auto) 0.4-5.4 10 ^3/uL Monocytes # (Auto) 0-1.3 10 ^3/uL Differential Total Cells Counted 100.0 100 Neutrophils % (Manual) 42 37.0-80.0 Band Neutrophils % (Manual) 0 Lymphocytes % (Manual) 57 H 10.0-50.0 Monocytes % (Manual) 1 0-12 Eosinophils % (Manual) 0 0-7 Basophils % (Manual) 0 0.0-2.0 Metamyelocytes % (manual) 0 Myelocytes % (Manual) 0 Promyelocytes % (Manual) 0 Blast Cells % (Manual) 0 Reactive Lymphocytes 0 Platelet Estimate Adequate D-Dimer, Quantitative 1.09 H 0.0-0.49 mg/L FEU Sodium Level 144 136-145 mmol/L Potassium Level 3.8 3.5-5.1 mmol/L Chloride Level 100 98-107 mmol/L Carbon Dioxide Level 34 H 20-31 mmol/L Anion Gap 10 5-15 Blood Urea Nitrogen 34 H 9-23 mg/dL Creatinine 2.02 H 0.700-1.30 mg/dL Glomerular Filtration Rate Calc 34 >90 mL/min BUN/Creatinine Ratio 16.8 10.0-20.0 Serum Glucose 209 H 74-106 mg/dL Calcium Level 9.4 8.7-10.4 mg/dL B-Type Natriuretic Peptide 2573.69 0-100 pg/mL The chest x-ray shows: IMPRESSION: Cardiomegaly with pulmonary vascular congestion and bilateral pleural effusion. The BNP is elevated at 2573.69 The BUN is 34 and the creatinine is 2.02 The D-dimer is 1.09 The patient's CBC shows anemia with a hemoglobin of 9.3 and hematocrit of 29.5 The patient's white blood cell count is elevated at 15.3 The patient's troponin level is 26 and the repeat is 26 The patient is being admitted A cardiology consult will be obtained. Images Reviewed?: Images reviewed and evaluated by me Time of 1ST Reevaluation: 14:04 Reevaluation 1ST: Unchanged Patient Education/Counseling: Diagnosis, Treatment, Prognosis Family Education/Counseling: No Family Present SEPSIS Sepsis Screen Physician Orders Urinalysis (04/22/25 13:59) Chest Portable (04/22/25 13:59) Heplock Iv (04/22/25 13:59) Pulse Oximetry (04/22/25 13:59) Oxygen (04/22/25 13:59) Rental Sales Representative (04/22/25 13:59) Blood Pressure (04/22/25 13:59) Troponin-I Hs (04/22/25 16:59) Furosemide Injection (Lasix Injection) (04/22/25 18:15) Vital Signs Date Time Temp Pulse Resp B/P (MAP) Pulse Ox O2 Delivery O2 Flow Rate FiO2 04/22/25 16:44 98.4 50 18 159/61 (93) 94 98.4 04/22/25 14:53 89 04/22/25 14:04 50 04/22/25 13:57 50 04/22/25 13:52 99.0 60 23 160/71 (100) 95 99.0 Laboratory Tests Test 04/22/25 14:38 White Blood Count 15.3 10^3/uL (4.4-10.8) H Departure 1 Departure Time of Disposition: 18:07 Impression: Primary Impression: Acute on chronic systolic (congestive) heart failure Disposition: ADMITTED INPATIENT Admit to: Tele Condition: Fair Critical Care Note Critical Care Time?: Yes (55 min-critical care time only) Stability Stability form required: Yes Unstable for transfer: Telemetry monitoring (Telemetry monitoring required), ED Physician Assesment (Clinical assesment) Heart Score Heart Score: Heart Score Response (Comments) Value History Slightly Suspicious 0 EKG Normal 0 Age >65 2 Risk Factors >3 or Hx ASHD 2 Troponin Normal limit 0 Total 4 I personally scribed for SKYLER QUEVEDO MD ([email or web address]) on 04/22/25 at 14:04. Electronically submitted by Alyssa Napier ([facility]). SKYLER QUEVEDO MD Apr 22, 2025 14:04
[2025-04-22 14:47] LABS: Hematocrit 29.5 % (41.0-53.0); Hemoglobin 9.3 g/dL (13.5-17.5); Mean Corpuscular Hemoglobin 27.4 pg (28.0-32.0); Mean Corpuscular Volume 86.7 fL (80.0-100.0)
[2025-04-22 14:54] LABS: Chloride 100 mmol/L (98-107); Potassium 3.8 mmol/L (3.5-5.1); Sodium 144 mmol/L (136-145)
[2025-04-22 14:55] LABS: Anion Gap 10 (5-15)
--- NOTE | 2025-04-22 14:55 | ECG ---
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
[2025-04-22 14:56] LABS: Calcium 9.4 mg/dL (8.7-10.4)
[2025-04-22 14:57] LABS: Carbon Dioxide 34 mmol/L (20-31)
[2025-04-22 15:00] LABS: BUN/Creatinine Ratio 16.8 (10.0-20.0)
[2025-04-22 15:01] LABS: Blood Urea Nitrogen 34 mg/dL (9-23); Glucose 209 mg/dL (74-106)
[2025-04-22 15:24] LABS: Total Cells Counted 100.0 (100)
--- NOTE | 2025-04-22 16:01 | DVH ---
XY CHEST PORTABLE, HISTORY: sob COMPARISON: XY CHEST PORTABLE on DOS: 03/20/25, XY CHEST PORTABLE on DOS: 01/29/25 XY CHEST PORTABLE on DOS: 03/20/25, XY CHEST PORTABLE on DOS: 01/29/25 TECHNICAL DATA: 1 view of the chest was obtained. FINDINGS: Lines and tubes: None Cardiomediastinal silhouette: Enlarged Pulmonary vasculature: prominent Lung expansion: low Lung airspace: Bibasilar opacity. Lung interstitium: prominent Pleura: bilateral effusion Pneumothorax: no Bones: Unremarkable Other: no IMPRESSION: Cardiomegaly with pulmonary vascular congestion and bilateral pleural effusion.
[2025-04-22 16:44] VITALS: BP 159/61; PULSE 50; RESP 18; TEMP 98.4; O2SAT 94
--- NOTE | 2025-04-22 17:54 | ECG ---
[facility] Test Date: 2025-04-22 Test Time: 17:53:53 Pat Name: SYED MCCARTHY Department: ED Room: Gender: M Television Cable Installer: : 1950 Requested By: SKYLER QUEVEDO Order Number: [id number] Reading MD: Benigno Erickson Measurements Intervals [place] Rate: 50 P: 0 [place]: 53 QRS: 150 QRSD: 163 T: -79 QT: 512 QTc: 467 Interpretive Statements Ventricular-paced complexes No further analysis attempted due to paced rhythm Electronically Signed On 04-25-2025 15:54:35 PDT by Benigno Erickson Please click the below link to view image of tracing.
[2025-04-22] MEDS ORDERED: FUROSEMIDE 40 MG/4 ML VIAL IV ONE (18:15)
--- NOTE | 2025-04-25 15:13 | ECG ---
[facility] Test Date: 2025-04-22 Test Time: 17:53:20 Pat Name: SYED MCCARTHY Department: ED Room: Gender: M Drug Abuse Program Coordinator: : 1950 Requested By: SKYLER QUEVEDO Order Number: [id number] Reading MD: Benigno Erickson Measurements Intervals [place] Rate: 51 P: 27 [place]: 168 QRS: 152 QRSD: 157 T: 228 QT: 551 QTc: 508 Interpretive Statements Ventricular-paced complexes No further analysis attempted due to paced rhythm Electronically Signed On 04-25-2025 15:54:34 PDT by Benigno Erickson Please click the below link to view image of tracing.
== END 2025-04-22 20:47 | disposition left against medical advice (07) ==
LOC: ER 13:47 → EDBD 13:47 → ER 20:47
DX: I11.0 Hypertensive heart disease with heart failure (principal); I50.23 Acute on chronic systolic (congestive) heart failure; E11.9 Type 2 diabetes mellitus without complications; E78.5 Hyperlipidemia, unspecified; I48.91 Unspecified atrial fibrillation; I25.10 Atherosclerotic heart disease of native coronary artery without angina pectoris; F32.A Depression, unspecified; Z95.0 Presence of cardiac pacemaker; Z86.2 Personal history of diseases of the blood and blood-forming organs and certain disorders involving the immune mechanism
CPT/HCPCS: 36415; 71045; 80048; 83880; 84484; 85007; 85027; 85379; 93005; 99291